=== PATIENT | male | born 1980 ===

== ENCOUNTER 2017-05-14 13:02 | Inpatient (IN) | payer MEDICAID ==
--- NOTE | 2017-05-14 13:43 | C.PDOC ---
History Of Present Illness 36-year-old male, presents to the emergency department requesting detox from Heroin and Oxycontin. Last use this morning. Patient denies any chest pain, shortness of breath, nausea/vomiting, SI/HI, or any other associated symptoms. No other complaints at this time. Time Seen by Provider: 05/14/17 13:22 Chief Complaint (Nursing): Substance Abuse History Per: Patient History/Exam Limitations: no limitations Past Medical History Reviewed: Historical Data, Nursing Documentation, Vital Signs Vital Signs: Last Vital Signs Temp 98 F 05/14/17 20:12 Pulse 80 05/14/17 20:12 Resp 18 05/14/17 20:12 BP 109/71 05/14/17 20:12 Pulse Ox 98 05/14/17 20:12 Family History: States: No Known Family Hx - Social History Hx Alcohol Use: No Hx Substance Use: Yes - Immunization History Hx Tetanus Toxoid Vaccination: Yes Hx Influenza Vaccination: No Review Of Systems Constitutional: Negative for: Fever, Chills Cardiovascular: Negative for: Chest Pain, Palpitations Respiratory: Negative for: Shortness of Breath Gastrointestinal: Negative for: Nausea, Vomiting Neurological: Negative for: Weakness, Numbness, Headache Physical Exam - Physical Exam Appears: Non-toxic, No Acute Distress Skin: Warm, Dry, No Rash Head: Atraumatic, Normacephalic Eye(s): bilateral: Normal Inspection, PERRL Nose: Normal Oral Mucosa: Moist Lips: Normal Appearing Neck: Normal ROM Respiratory: No Accessory Muscle Use Extremity: Normal ROM ED Course And Treatment - Laboratory Results Result Diagrams: 05/14/17 14:07 05/14/17 14:07 O2 Sat by Pulse Oximetry: 99 Medical Decision Making Medical Decision Making: will medically clear for crisis. pt confortable, taking po in nad. 230: pt medically clear for crisis. Disposition - Disposition Disposition: HOSPITALIZED Disposition Time: 02:00 Condition: STABLE - Clinical Impression Clinical Impression: Opiate dependence - Scribe Statement The provider has reviewed the documentation as recorded by the Scribe (Jackie Otto) All medical record entries made by the Scribe were at my direction and personally dictated by me. I have reviewed the chart and agree that the record accurately reflects my personal performance of the history, physical exam, medical decision making, and the department course for this patient. I have also personally directed, reviewed, and agree with the discharge instructions and disposition. Decision To Admit - Pt Status Changed To: Hospital Disposition Of: Inpatient - Admit Certification Admit to Inpatient:: After my assessment, the patient will require hospitalization for at least two midnights. This is because of the severity of symptoms shown, intensity of services needed, and/or the medical risk in this patient being treated as an outpatient. - InPatient: Physician Admission Certification: I certify that this patient requires 2 or more midnights of care for the following reason:: need detox - . Bed Request Type: Detox Admitting Physician: Manjinder Howard Patient Diagnosis: Opiate dependence
[2017-05-14 14:11] LABS: BASO % 0.6 % (0.0-2.0); EOS % 0.4 % (0.0-4.0); HEMOGLOBIN 14.5 g/dL (12.0-18.0); LYMPH # 2.3 K/uL (1.0-4.3); LYMPH % 27.8 % (20.0-40.0); MEAN CELL VOLUME 96.9 fL (80.0-94.0); MEAN CORPUSCULAR HGB CONC 34.1 g/dL (33.0-37.0); MEAN PLATELET VOLUME 9.3 fL (7.2-11.7); MONO # 0.6 K/uL (0.0-0.8); MONO % 6.9 % (0.0-10.0); NEUT # 5.4 K/uL (1.8-7.0); NEUT % 64.3 % (50.0-75.0); RBC 4.4 Mil/uL (4.40-5.90); RED CELL DISTRIBUTION WIDTH 12.1 % (11.5-14.5); WHITE BLOOD COUNT 8.3 K/uL (4.8-10.8)
[2017-05-14 14:17] LABS: SQUAMOUS EPITHIAL < 1 /hpf (0-5); URINE BILIRUBIN NEGATIVE (NEGATIVE); URINE BLOOD NEGATIVE (NEGATIVE); URINE CLARITY Clear (Clear); URINE COLOR Yellow (YELLOW); URINE GLUCOSE (UA) NORMAL (Normal); URINE LEUKOCYTE ESTERASE TRACE Leu/uL (Negative); URINE NITRATE NEGATIVE (NEGATIVE); URINE PROTEIN 1+ mg/dL (NEGATIVE)
[2017-05-14 14:19] LABS: ALBUMIN 4.6 g/dL (3.5-5.0)
[2017-05-14 14:22] LABS: GFR AFRICAN-AMERICAN > 60; GFR NON-AFRICAN AMERICAN > 60
[2017-05-14 14:23] LABS: ALB/GLOB RATIO 1.1 (1.0-2.1); ALT/SGPT 28 U/L (21-72); AST/SGOT 21 U/L (17-59); BLOOD UREA NITROGEN 17 mg/dL (9-20); CALCIUM 9.8 mg/dl (8.6-10.4)
[2017-05-14 14:24] LABS: SALICYLATE < 1.0 mg/dL 1
[2017-05-14 14:25] LABS: ACETAMINOPHEN < 10.0 ug/mL (10.0-30.0)
[2017-05-14 14:26] LABS: BARBITURATES, UR NEGATIVE (NEGATIVE)
[2017-05-14 14:27] LABS: BENZODIAZEPINES, UR NEGATIVE (NEGATIVE)
[2017-05-14 14:30] LABS: OPIATES, UR POSITIVE (NEGATIVE); PHENCYCLIDINE, UR NEGATIVE (NEGATIVE)
[2017-05-14 16:26] VITALS: RESP 18
[2017-05-14] MEDS ORDERED: Aluminum Hydroxide/Magnesium Hydroxide Susp (30 mL) PO PRN (16:44)
--- NOTE | 2017-05-15 12:53 | PCM.PSYCH ---
Initial Psychiatric Evaluation - Initial Psychiatric Evaluation Type of Admission: Voluntary Legal Status: Capacity Chief Complaint (in patient's own words): "I want detox" History of Present Illness and Precipitating Events: The patient is seen, chart reviewed and case discussed. He is a 36-year-old male, in a relationship, unemployed, lives with his mom and girlfriend. The patient reports using heroin for 3-4 years but he also uses methadone from the street. He purchased a bottle of methadone about 75 mg and drank it on April 12May. His last use of heroin was 4 days ago. He claims he uses 50 bags/day at times, but sometimes 10 bags, intranasally. Patient reports using oxycodone 80 mg, 4 times a day for the past 12 years. His last use of oxycodone was 2 weeks ago. He started detox last night due to wdw sxs denies other drugs Smokes cigarettes 1 ppd First time in treatment. Never attended rehab or AA. Medical hx: still feels pain from fractured knee from a fall 4-5 years ago Family hx: Denies Psych hx: Denies Social hx: worked as a waiter/waitress cocktail lounge in the past Current Medications: Active Medications Generic Name Dose Route Start Last Admin Trade Name Freq PRN Reason Stop Dose Admin Al Hydrox/Mg Hydrox/Simethicone 30 ml 05/14/17 16:44 Maalox 30 Ml PO TID PRN Indigestion / Heartburn Clonidine HCl 0.1 mg 05/14/17 16:44 Catapres PO Q8 PRN COWS Score More or Equal to 5 Hydroxyzine HCl 50 mg 05/14/17 16:45 05/14/17 22:00 Atarax PO 50 mg Q6H PRN Administration Anxiety Ibuprofen 600 mg 05/14/17 16:45 05/14/17 22:01 Motrin Tab PO 600 mg Q6H PRN Administration Pain, moderate (4-7) Loperamide HCl 2 mg 05/14/17 16:44 Imodium PO Q8 PRN Diarrhea Methadone HCl 15 mg 05/15/17 10:00 05/15/17 09:45 Methadone PO 05/18/17 09:59 15 mg Q24H SVEN Administration Taper Ondansetron HCl 4 mg 05/14/17 16:44 Zofran Tab PO Q8 PRN Nausea/Vomiting Trazodone HCl 100 mg 05/14/17 16:45 05/14/17 22:00 Desyrel PO 100 mg HS PRN Administration Insomnia Past Psychiatric History - Past Psychiatric History Previous Treatment History: None Pertinent Medical Hx (Current Medical&Sleep Prob, Allergies): Allergies Allergy/AdvReac Type Severity Reaction Status Date / Time No Known Allergies Allergy Unverified 05/14/17 13:10 No Known Home Med 05/14/17 Review of Systems - Musculoskeletal Musculoskeletal: Back Pain Additional comments: "All bones in body hurt" Pain from fractured knee 4-5 years ago. - Neurological Neurological: Headaches - Psychiatric Psychiatric: Abnormal Sleep Pattern, Difficulty Concentrating. absent: Anxiety , Depression, Hallucinations, Homicidal Ideation, Paranoia, Suicidal Ideation Mental Status Examination - Personal Presentation Personal Presentation: Looks stated age - Affect Affect: Constricted - Motor Activity Motor Activity: Calm - Reliability in Providing Information Reliability in Providing Information: Good - Speech Speech: Organized - Mood Mood: Anxious - Formal Thought Process Formal Thought Process: No Impairment - Cognitive Functions Orientation: Person, Place, Situation, Time Sensorium: Alert Attention/Concentration: Attentive Estimate of Intelligence: Average Judgement: Intact, as evidence by: Insight regarding need for hospitalization Memory: Recent intact, as evidence by: Ability to recall events of the day, Remote intact, as evidenced by: Abilit to recall sig. life events - Risk Risk: Withdrawal, Diminished functioning - Strength & Assets Inventory Strength & Assets Inventory: Cooperative - Limitations Limitations: Living alone, Other (unemployed) DSM 5 DX - DSM 5 DSM 5 Diagnosis: Opioid withdrawal Opioid use d/o - severe - Recommended/Plan of Treatment Treatment Recommendations and Plan of Treatment: Methadone detox As needed meds and vitamins Attend groups and activities AR for abstinence and CBT for relapse prevention Support and psychoeducation Consider and encourage MAT Refer to after care 33 min Projected ELOS: 4 days Prognosis: Good with treatment Discharge Plan and Discharge Criteria: No wdw sxs refer to rehab and MAT - Smoking Cessation Smoking Cessation Initiated: Yes
--- NOTE | 2017-05-16 17:29 | PCM.PYCHPN ---
Psychiatric Progress Note - Psychiatric Progress Note Patient seen today, length of contact: 16 min Patient Chief Complaint: "I am better" Problems Identified/Issues Discussed: The pt is seen, chart reviewed, case discussed with staff. Support given, CBT and VT used briefly No new symptoms reported, improving slowly and needs some more time No SEs from medications, risks discussed. After care discussed Medication Change: Yes (detox changes daily) Medical Record Reviewed: Yes Mental Status Examination - Cognitive Function Orientation: Person, Place, Situation, Time Memory: Intact Attention: WNL Concentration: WNL Association: WNL Fund of Knowledge: WNL - Mood Mood: Anxious - Affect Affect: Constricted - Speech Speech: Appropriate - Formal Thought Process Formal Thought Process: No Impairment - Suicidal Ideation Suicidal Ideation: No - Homicidal Ideation Homicidal Ideation: No Goal/Treatment Plan - Goal/Treatment Plan Need for Continued Stay: Discharge may exacerbated symptoms, Severe functional impairment Progress Toward Problem(s) and Goals/Treatment Plan: Methadone detox As needed meds and vitamins Attend groups and activities VT for abstinence and CBT for relapse prevention Support and psychoeducation Consider and encourage MAT Refer to after care Estimated Date of D/C: 05/19/17
[2017-05-17 09:47] VITALS: O2SAT 99
--- NOTE | 2017-05-17 13:53 | PCM.PYCHPN ---
Psychiatric Progress Note - Psychiatric Progress Note Patient seen today, length of contact: 15 minutes Patient Chief Complaint: I'm feeling better but still have some withdrawal symptoms Problems Identified/Issues Discussed: Patient seen. Chart reviewed. Case discussed with the staff. Issues related to illness and treatment were discussed with the patient. Patient reported compliant with treatment with no adverse effect. Tolerating treatment very well. Feeling better with some mild withdrawal symptoms including abdominal cramps and sleeping difficulties. Stable otherwise. At the time of evaluation, patient was awake alert oriented 3, had no delusions, no auditory or visual hallucinations, no suicidal ideations or homicidal ideations. Medical Problems: None reported Diagnostic Results: Reviewed DSM 5 Symptoms Update: Improving with treatment Medication Change: No Medical Record Reviewed: Yes Mental Status Examination - Cognitive Function Orientation: Person, Place, Situation, Time Memory: Intact Attention: WNL Concentration: WNL Association: WNL Fund of Knowledge: [facility] Decription of patient's judgement and insights: Fair - Mood Mood: Neutral - Affect Affect: Other (Appropriate) - Speech Speech: Appropriate - Formal Thought Process Formal Thought Process: No Impairment Psychotic Thoughts and Behaviors: None - Suicidal Ideation Suicidal Ideation: No - Homicidal Ideation Homicidal Ideation: No Goal/Treatment Plan - Goal/Treatment Plan Need for Continued Stay: Remain at risks for inpatient hospitalization, Discharge may exacerbated symptoms, Severe functional impairment Progress Toward Problem(s) and Goals/Treatment Plan: Patient education Supportive therapy Continue treatment as before Patient will go to [facility] rehabilitation after discharge from the hospital , for follow-up care. Estimated Date of D/C: 05/19/17 - Smoking Cessation Smoking Cessation Initiated: No
[2017-05-18 06:19] VITALS: BP 125/68; PULSE 79; TEMP 97.5
--- NOTE | 2017-05-18 08:52 | PCM.PYCHDC ---
Mental Status Examination - Mental Status Examination Orientation: Person, Place, Situation, Time Memory: Intact Mood: Neutral Affect: Constricted Speech: Appropriate Attention: WNL Concentration: WNL Association: WNL Fund of Knowledge: WNL Formal Thought Process: No Impairment Suicidal Ideation: No Current Homicidal Ideation?: No Discharge Summary - Discharge Note Reason for Hospitalization: Pt was admitted for detox from heroin use, 50-60 bags per day. Consultations:: List each consultation separately and include: 1. Reason for request. 2. Findings. 3. Follow-up Summary of Hospital Course include:: 1. Description of specific treatment plan utilized for patients during their course of treatmen. 2. Summarize the time- course for resolution of acute symptoms and/or regressed behaviors. 3. Describe issues identified and worked on during hospitalization. 4. Describe medication utilized. 5. Describe medical problems identified and treated. 6. Reassessment of suicide risk Summary of Hospital Course: Upon admission The patient is seen, chart reviewed and case discussed. He is a 36-year-old male, in a relationship, unemployed, lives with his mom and girlfriend. The patient reports using heroin for 3-4 years but he also uses methadone from the street. He purchased a bottle of methadone about 75 mg and drank it on April 12May. His last use of heroin was 4 days ago. He claims he uses 50 bags/day at times, but sometimes 10 bags, intranasally. Patient reports using oxycodone 80 mg, 4 times a day for the past 12 years. His last use of oxycodone was 2 weeks ago. He started detox last night due to wdw sxs denies other drugs Smokes cigarettes 1 ppd First time in treatment. Never attended rehab or AA. Medical hx: still feels pain from fractured knee from a fall 4-5 years ago Family hx: Denies Psych hx: Denies Social hx: worked as a sanitation manager in the past Upon discharge The pt was admitted and started on treatment with psychotherapy, support, psychoeducation and medications. NC and CBT used. The pt attended groups and activities, as well as milieu therapy. All the risks and benefits of medications are discussed and the patient understood and agreed. The pt improved with the treatments provided. After care discussed with the patient. Patient will go to [facility] rehab. - Final Diagnosis (DSM 5) Condition upon Discharge: STABLE DSM 5: Opioid withdrawal Opioid use d/o - severe Disposition: HOME/ ROUTINE Follow-up Treatment Plan: Continue below medications after discharge. Follow after care plan as discussed: Abigail Use relapse prevention skills Return to ER or call 911 if suicidal, homicidal or symptoms relapse. Stay away from stress, alcohol and drugs. See primary doctor once a year. Prescriptions/Medication Reconciliation: traZODone [Desyrel] 100 mg PO HS PRN #30 tab PRN Reason: Insomnia - Smoking Cessation Smoking Cessation Medication prescribed: No - Antipsychotic Medications Pt discharged on 2 or more routine antipsychotic medications: No
== END 2017-05-18 09:30 | disposition home or self-care (01) | DRG 745 ==
LOC: C.ER 13:02 → C.7D 15:38
PROVIDERS: ADMIT Psychiatry & Neurology Psychiatry; ATTEND Psychiatry & Neurology Psychiatry
PROC: HZ2ZZZZ Detoxification Services for Substance Abuse Treatment (ICD-10-PCS; principal; 2017-05-14)
PROC: HZ59ZZZ Individual Psychotherapy for Substance Abuse Treatment, Supportive (ICD-10-PCS; 2017-05-14)
PROC: HZ46ZZZ Group Counseling for Substance Abuse Treatment, Psychoeducation (ICD-10-PCS; 2017-05-14)
DX: F11.23 Opioid dependence with withdrawal (principal); F17.210 Nicotine dependence, cigarettes, uncomplicated